=== PATIENT | male | born 1940 | race Caucasian/White ===

== ENCOUNTER 2023-08-02 14:35 | Outpatient (REF) | payer OTHER, SELFPAY ==
[2023-08-02 15:53] LABS: Anion Gap 13 (12-20); Blood Urea Nitrogen 18 mg/dL (9-16); Calcium 9.1 mg/dL (8.4-10.2); Carbon Dioxide 27 mmol/L (22-29); Chloride 107 mmol/L (96-108); Estimated Glomerular Filt Rate > 60; Glucose Random 96 mg/dL (60-115); Sodium 142 mmol/L (135-145)
== END 2023-08-02 14:36 | disposition home or self-care (01) ==
LOC: HO.HVNA 14:35
PROVIDERS: Visit Provider Internal Medicine
DX: J96.01 Acute respiratory failure with hypoxia (principal); Z51.81 Encounter for therapeutic drug level monitoring
CPT/HCPCS: 36415; 80048